=== PATIENT | female | born 1970 | race Caucasian/White ===

== ENCOUNTER 2020-07-04 10:07 | Emergency (ER) | payer BC ==
--- NOTE | 2020-07-04 10:38 | EDM.PDOC ---
ED HPI GENERAL MEDICAL PROBLEM - General Chief Complaint: Lower Extremity Injury/Pain Stated Complaint: POSSIBLY BROKE ANKLE Time Seen by Provider: 07/04/20 10:14 Source of Information: Reports: Patient History Limitations: Reports: No Limitations - History of Present Illness INITIAL COMMENTS - FREE TEXT/NARRATIVE: Reporting fall down 2 steps after catching her toe on the wrong. Happened just prior to arrival. She states that she twisted her ankle and now has lateral pain and tenderness. She crawled out to her vehicle and her son helped her get in and drove her here so she has not had an opportunity to bear weight. Denies any other injuries. She has a medical history that includes obesity ulcerative colitis hypertension and borderline diabetes. 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 left ankle Pain Score (Numeric/FACES): 4 - Related Data Allergies Allergy/AdvReac Type Severity Reaction Status Date / Time No Known Allergies Allergy Verified 07/04/20 10:29 Home Meds: Home Meds Losartan [Cozaar] 01/30/15 [History] Mesalamine [Lialda] 01/30/15 [History] Pantoprazole Sodium [Protonix] 20 mg PO DAILY 01/30/15 [History] Sertraline HCl 01/30/15 [History] azaTHIOprine [Imuran] 01/30/15 [History] Review of Systems - Review of Systems Review Of Systems: Comprehensive ROS is negative, except as noted in HPI. ED EXAM, GENERAL - Physical Exam Exam: See Below Exam Limited By: No Limitations General Appearance: Alert, No Apparent Distress Ears: Normal External Exam Nose: Normal Inspection Throat/Mouth: Normal Inspection Head: Atraumatic, Normocephalic Neck: Normal Inspection Respiratory/Chest: No Respiratory Distress, Lungs Clear, Normal Breath Sounds Cardiovascular: Regular Rate, Rhythm Extremities: Other (Ankle lateral swelling. Full range of motion of the ankle knee and toes without hesitation or limitation. Tenderness but no erythema ecchymosis, crepitus or deformity of the ankle.) Neurological: Alert, Oriented Course - Vital Signs Last Recorded V/S: Last Vital Signs Temp 36.4 C 07/04/20 10:30 Pulse 105 H 07/04/20 10:30 Resp 18 07/04/20 10:30 BP 187/94 H 07/04/20 10:30 Pulse Ox 98 07/04/20 10:30 - Orders/Labs/Meds Orders: Active Orders 24 hr Category Date Time Status Ketorolac [Toradol] Med 07/04/20 11:12 Once 60 mg IM ONETIME ONE DME for Discharge [COMM] Stat Oth 07/04/20 11:13 Ordered - Re-Assessments/Exams Free Text/Narrative Re-Assessment/Exam: 07/04/20 11:14 Distal fibula fracture. Patient requires splinting for immobilization and pain control to promote healing in anatomical alignment. Patient requires crutches for no weight bearing LLE for immobilization and pain control and to promote healing in anatomical alignment. Departure - Departure Time of Disposition: 11:23 Disposition: Home, Self-Care 01 Condition: Good Clinical Impression: Fibula fracture Qualifiers: Encounter type: initial encounter Fibula location: distal Fracture type: closed Laterality: left - Discharge Information Referrals: Erick Taylor MD [Primary Care Provider] - Seven Vang DO [Physician] - Forms: ED Department Discharge Additional Instructions: The following information is given to patients seen in the emergency department who are being discharged to home. This information is to outline your options for follow-up care. We provide all patients seen in our emergency department with a follow-up referral. The need for follow-up, as well as the timing and circumstances, are variable depending upon the specifics of your emergency department visit. If you don't have a primary care physician on staff, we will provide you with a referral. We always advise you to contact your personal physician following an emergency department visit to inform them of the circumstance of the visit and for follow-up with them and/or the need for any referrals to a consulting specialist. The emergency department will also refer you to a specialist when appropriate. This referral assures that you have the opportunity for follow-up care with a specialist. All of these measure are taken in an effort to provide you with optimal care, which includes your follow-up. Under all circumstances we always encourage you to contact your private physician who remains a resource for coordinating your care. When calling for follow-up care, please make the office aware that this follow-up is from your recent emergency room visit. If for any reason you are refused follow-up, please contact the [facility] Emergency Department at and asked to speak to the emergency department charge nurse. [facility] [place] [place] [facility] [address], [address] [place] [address] 1. Please call the orthopedic clinic for an appointment to be seen in the next 2 days for urgent follow up. Your name has been forwarded to the clinic for urgent follow up. 2. Elevate left foot. Cool pack 20 minutes every 3-4 hours as needed to prevent swelling and pain 3. Loosen Dean wrap if toes become cool, pale, tingling or numb 4. No weightbearing left leg. Use crutches. 5. Aleve 2 tabs a.m. and p.m. or ibuprofen 2-3 tabs 3 times daily with food as needed for pain. Sepsis Event Note (ED) - Evaluation Sepsis Screening Result: No Definite Risk - Focused Exam Vital Signs: Vital Signs Temp Pulse Resp BP Pulse Ox 07/04/20 10:30 36.4 C 105 H 18 187/94 H 98 - My Orders Last 24 Hours: My Active Orders 07/04/20 11:12 Ketorolac [Toradol] 60 mg IM ONETIME ONE 07/04/20 11:13 DME for Discharge [COMM] Stat - Assessment/Plan Last 24 Hours: My Active Orders 07/04/20 11:12 Ketorolac [Toradol] 60 mg IM ONETIME ONE 07/04/20 11:13 DME for Discharge [COMM] Stat
--- NOTE | 2020-07-04 11:09 | CR ---
Indication: Injury Technique: Three images of the left ankle were quite Comparison: None Findings: There is an oblique/spiral fracture the distal the fibula. There is widening of the syndesmosis medially. No lora dislocation. Impression: Fracture of the distal fibula. Widening of the syndesmosis medially. No lora dislocation Dictated by Michael Dai MD @ Jul 04 2020 11:05AM Signed by Dr. Michael Dai @ Jul 04 2020 11:08AM
[2020-07-04] MEDS ORDERED: Ketorolac 60 MG/2 ML SDV IM ONE (11:12)
[2020-07-04 19:27] VITALS: BP 157/83; PULSE 101
== END 2020-07-04 11:47 | disposition home or self-care (01) ==
LOC: MW.ED 10:07
DX: S82.832A Other fracture of upper and lower end of left fibula, initial encounter for closed fracture (principal); Z79.899 Other long term (current) drug therapy; W10.9XXA Fall (on) (from) unspecified stairs and steps, initial encounter
CPT/HCPCS: 29515; 73610; 96372; 99283; J1885; 99282

== ENCOUNTER 2020-07-12 09:17 | Day surgery (SDC) | payer BC ==
[~2020-07-12 09:17] MED LIST: Bupivacaine 25%/EPINEPHrine/PF 30 ML ONE; Lactated Ringers 1,000 ML IV SCH; Lidocaine 2% 5 ML SDV ONE; Midazolam 1 MG/ML 2 ML SDV ONE; Ondansetron 4 MG/2 ML SDV ONE; Propofol 200 MG/20 ML SDV ONE; ceFAZolin 2 GM in Premix Bag 1 BAG IV SCH; fentaNYL 250 MCG/5 ML SDV ONE
[2020-07-12] MEDS ORDERED: fentaNYL 100 MCG/2 ML SDV ONE (09:40)
[2020-07-12] MEDS ORDERED: Midazolam 1 MG/ML 2 ML SDV ONE (09:47)
[2020-07-12] MEDS ORDERED: fentaNYL 250 MCG/5 ML SDV ONE (09:47)
[2020-07-12] MEDS ORDERED: Propofol 200 MG/20 ML SDV ONE (09:47)
--- NOTE | 2020-07-12 09:54 | PCM.PREANE ---
Preanesthetic Assessment - Anesthesia/Transfusion/Family Hx Anesthesia History: Prior Anesthesia Without Reaction Family History of Anesthesia Reaction: No Transfusion History: No Prior Transfusion(s) Intubation History: Unknown - Review of Systems General: No Symptoms Pulmonary: No Symptoms Cardiovascular: No Symptoms Gastrointestinal: No Symptoms Neurological: No Symptoms Other: Reports: None - Physical Assessment Height: 5 ft 6 in Weight: 127.006 kg ASA Class: 3 Mental Status: Alert & Oriented x3 Airway Class: Mallampati = 2 Dentition: Reports: Normal Dentition, [place](s) (few, lower left and right (back)) Thyro-Mental Finger Breadths: 3 Mouth Opening Finger Breadths: 2 ROM/Head Extension: Limited/Partial Lungs: Clear to Auscultation, Normal Respiratory Effort Cardiovascular: Regular Rate, Regular Rhythm - Allergies Allergies/Adverse Reactions: Allergies Allergy/AdvReac Type Severity Reaction Status Date / Time No Known Allergies Allergy Verified 07/07/20 08:56 - Blood Blood Available: No - Anesthesia Plan Pre-Op Medication Ordered: None - Acknowledgements Anesthesia Type Planned: General Anesthesia Pt an Appropriate Candidate for the Planned Anesthesia: Yes Alternatives and Risks of Anesthesia Discussed w Pt/Guardian: Yes Pt/Guardian Understands and Agrees with Anesthesia Plan: Yes PreAnesthesia Questionnaire HEENT History: Reports: Other (See Below) Other HEENT History: wears glasses Cardiovascular History: Reports: High Cholesterol, Hypertension Respiratory History: Reports: Other (See Below) Other Respiratory History: states has not been diagnosed with sleep apnea but does snore Gastrointestinal History: Reports: GERD Other Gastrointestinal History: h/o ulcerative colitis Genitourinary History: Reports: None 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: Musculoskeletal History: Reports: Fracture (ankle at present time) Neurological History: Reports: Migraines Psychiatric History: Reports: Anxiety, Depression Endocrine/Metabolic History: Reports: Obesity/BMI 30+ (BMI 45.2), Other (See Below) Other Endocrine/Metabolic History: "borderline diabetic" Hematologic History: Reports: Anemia Immunologic History: Reports: None Oncologic (Cancer) History: Reports: None Dermatologic History: Reports: Other (See Below) Other Dermatologic History: hx shingles - Infectious Disease History Infectious Disease History: Reports: None - Past Surgical History Head Surgeries/Procedures: Reports: None HEENT Surgical History: Reports: Tonsillectomy Cardiovascular Surgical History: Reports: None Respiratory Surgical History: Reports: None GI Surgical History: Reports: Colonoscopy, Other (See Below) Other GI Surgeries/Procedures: hx hemorrhoidectomy Female Surgical History: Reports: None Endocrine Surgical History: Reports: None Neurological Surgical History: Reports: None Musculoskeletal Surgical History: Reports: None Oncologic Surgical History: Reports: None Dermatological Surgical History: Reports: None - SUBSTANCE USE Tobacco Use Status *Q: Former Tobacco User (quit 15 years ago) Tobacco Use Within Last Twelve Months: No - HOME MEDS Home Medications: Home Meds Losartan [Cozaar] 50 mg PO DAILY 01/30/15 [History] Mesalamine [Lialda] 1.2 mg PO DAILY 01/30/15 [History] Pantoprazole Sodium [Protonix] 20 mg PO DAILY 01/30/15 [History] azaTHIOprine [Imuran] 50 mg PO DAILY 01/30/15 [History] Ascorbic Acid [Vitamin C] 1 tab PO DAILY 07/07/20 [History] DULoxetine HCl [Duloxetine HCl] 90 mg PO DAILY 07/07/20 [History] Desogestrel-Ethinyl Estradiol [Isibloom 28 Day Tablet] 1 tab PO DAILY 07/07/20 [History] Ibuprofen [Advil] 1 tab PO ASDIRECTED PRN 07/07/20 [History] Levomefolate Calcium [l-Methylfolate] 15 mg PO DAILY 07/07/20 [History] Metoprolol Succinate 25 mg PO DAILY 07/07/20 [History] Multivitamin 1 tab PO DAILY 07/07/20 [History] Phosphatidyl Serine [Phosphatidylserine] 1 tab PO DAILY 07/07/20 [History] Zinc 1 tab PO DAILY 07/07/20 [History] atorvaSTATin Calcium [Atorvastatin Calcium] 20 mg PO DAILY 07/07/20 [History] busPIRone HCl [busPIRone] 30 mg PO BID 07/07/20 [History] lamoTRIgine [Lamictal] 100 mg PO DAILY 07/07/20 [History] - CURRENT (IN HOUSE) MEDS Current Meds: Current Medications Lactated Ringer's (Ringers, Lactated) 1,000 mls @ 100 mls/hr IV ASDIRECTED MECHELLE Cefazolin Sodium/Dextrose 2 gm (/ Premix) 50 mls @ 100 mls/hr IV ONCALL MECHELLE Discontinued Medications Fentanyl (Sublimaze) Confirm Administered Dose 250 mcg .ROUTE .STK-MED ONE Stop: 07/12/20 06:50 Fentanyl (Sublimaze) Confirm Administered Dose 100 mcg .ROUTE .STK-MED ONE Stop: 07/12/20 09:41 Bupivacaine HCl/Epinephrine Bitart (Sensorc Mpf 0.25%-Epi [id number]) Confirm Administered Dose 30 mls @ as directed .ROUTE .STK-MED ONE Stop: 07/12/20 07:43 Lidocaine (Xylocaine-Mpf 2%) Confirm Administered Dose 5 ml .ROUTE .STK-MED ONE Stop: 07/12/20 06:52 Midazolam HCl (Versed 1 Mg/Ml) Confirm Administered Dose 2 mg .ROUTE .STK-MED ONE Stop: 07/12/20 06:50 Ondansetron HCl (Zofran) Confirm Administered Dose 4 mg .ROUTE .STK-MED ONE Stop: 07/12/20 06:52 Propofol (Diprivan 20 Ml) Confirm Administered Dose 200 mg .ROUTE .STK-MED ONE Stop: 07/12/20 06:49
[2020-07-12] MEDS ORDERED: Sodium Chloride 0.9% 20 ML ONE (10:51)
[2020-07-12] MEDS ORDERED: ceFAZolin 1 GM Vial ONE (10:51)
[2020-07-12] MEDS ORDERED: Ketamine 500 mg/10 ML MDV ONE (11:31)
[2020-07-12] MEDS ORDERED: Ondansetron 4 MG/2 ML SDV ONE (11:46)
[2020-07-12] MEDS ORDERED: Ketorolac 30 MG/ML SDV ONE (12:03)
--- NOTE | 2020-07-12 12:18 | PCM.OPNOTE ---
- General Post-Op/Procedure Note Date of Surgery/Procedure: 07/12/20 Operative Procedure(s): orif left lateral malleolus fracture Pre Op Diagnosis: left lateral malleolus fracture closed Post-Op Diagnosis: Same Anesthesia Technique: General LMA Primary Surgeon: Seven Vang Try On Baster: Crystal Mitchell EBL in mLs: 25 Complications: None Condition: Good
[2020-07-12] MEDS ORDERED: HYDROmorphone 2 MG/ML Syringe IVPUSH PRN (12:32)
[2020-07-12] MEDS ORDERED: HYDROmorphone 2 MG/ML Syringe ONE (12:32)
[2020-07-12] MEDS ORDERED: Acetaminophen 1,000 MG in Premix Bag 1 BAG IV ONE (12:33)
--- NOTE | 2020-07-12 13:56 | PCM.POSTAN ---
POST ANESTHESIA ASSESSMENT - MENTAL STATUS Mental Status: Alert, Oriented - VITAL SIGNS Vital Signs: Last Vital Signs Temp 36.4 C 07/12/20 12:17 Pulse 115 H 07/12/20 13:02 Resp 12 07/12/20 13:02 BP 132/72 07/12/20 13:02 Pulse Ox 95 07/12/20 13:02 - RESPIRATORY Respiratory Status: Respiratory Rate WNL, Airway Patent, O2 Saturation Stable - CARDIOVASCULAR CV Status: Pulse Rate WNL, Blood Pressure Stable - GASTROINTESTINAL GI Status: No Symptoms - PAIN Pain Score: 4 - POST OP HYDRATION Hydration Status: Adequate & Stable - OBSERVATIONS Free Text/Narrative:: No anesthesia problems
--- NOTE | 2020-07-12 14:52 | PCM48HPAN ---
Post Anesthesia Note - EVALUATION WITHIN 48HRS OF ANESTHETIC Vital Signs in Normal Range: Yes Patient Participated in Evaluation: Yes Respiratory Function Stable: Yes Airway Patent: Yes Cardiovascular Function Stable: Yes Hydration Status Stable: Yes Pain Control Satisfactory: Yes Nausea and Vomiting Control Satisfactory: Yes Mental Status Recovered: Yes Vital Signs: Last Vital Signs Temp 97.5 F 07/12/20 12:17 Pulse 115 H 07/12/20 13:02 Resp 12 07/12/20 13:02 BP 132/72 07/12/20 13:02 Pulse Ox 95 07/12/20 13:02 - COMMENTS/OBSERVATIONS Free Text/Narrative:: no anesthesia problems
[2020-07-12 15:47] VITALS: BP 113/58; PULSE 109
--- NOTE | 2020-07-12 16:15 | OR ---
SURGEON: Seven Vang DATE OF PROCEDURE: 07/12/2020 PREOPERATIVE DIAGNOSIS: Left lateral malleolus fracture, closed. POSTOPERATIVE DIAGNOSIS: Left lateral malleolus fracture, closed. PROCEDURE: Open reduction and internal fixation, left lateral malleolus fracture. PRIMARY SURGEON: Seven Vang DO COMPENSATION CONSULTING MANAGER: HOMAR Tolbert ROLE OF COMPENSATION CONSULTING MANAGER: Nurse practitioner, HOMAR Tolbert, played an essential role in assisting in this case, helping to position the patient, retract structures as needed, as well as suturing and cutting sutures as indicated. Her presence improved patient's safety and decreased operative time. ANESTHESIA: General LMA. FLUID: Lactated Ringer's solution. ESTIMATED BLOOD LOSS: 25 mL. COMPLICATIONS: None. SPECIMEN: None. DISCHARGE DISPOSITION: Stable to PACU. HISTORY AND INDICATIONS FOR THE PROCEDURE: The patient was seen preoperatively by myself in the clinic. She had previously been seen in the ER and found to have the above-mentioned fracture on radiographic diagnosis. At that time, the radiographs did show a wide mortise and that is why we would proceed with open reduction and internal fixation. Risks and goals of the procedure were explained to the patient. Informed consent was obtained. DETAILS OF PROCEDURE: The patient was seen preoperatively by myself and the Anesthesia staff in the preoperative holding area where the operative site was marked. She was brought to the operative suite by Anesthesia staff where general anesthesia was administered. All extremities were found to be well padded. A well-padded tourniquet was placed on the left thigh. A bump was placed under the left hip. The left lower extremity was then prepped and draped in a sterile manner. Time- out was called identifying the correct patient, the correct procedure, the correct site, and that antibiotics were given within appropriate period of time. The left lower extremity was exsanguinated. Tourniquet was raised to 250 mmHg and let down after closure. A sterilely draped fluoroscopy unit was used to identify the fracture site, it was well lined up. An incision was made from the tip of the lateral malleolus, 10 cm proximal, down to the subcu. I used Metzenbaums to enter the fracture hematoma site and then split bluntly just to avoid any damage to the superficial peroneal nerve. I then used a holly elevator to elevate soft tissue off the bone. I then used a [place] elevator to remove any blood clot from within the fracture site. I put two lobster claws on, one using quite a bit of traction and then other one to reduce the fracture. I tried this several times and was unable to reduce it proximally and posteriorly, but because we had gotten the bulk of the fracture reduced, I decided that this would be acceptable for fracture reduction. With the lobster claws in place, I then placed a lag screw across the fracture site, which provided excellent fixation. We then placed a five-hole plate and then drilled the bevel hole first and then confirmed that on x-ray and then drilled my other four holes. We then took AP and lateral final radiographs and then copiously irrigated with Betadine infused irrigation and then used Bovie electrocautery to get some more bleeders and then used 0 Stratafix in continuous manner to close subcutaneous tissues and then used skin venancio followed by Betadine-soaked Adaptic, fluffs, and an Dean wrap and then we placed her back into her boot. The patient was allowed to awaken from general anesthesia and taken to the PACU in stable condition. [id number] / MODL /[id number]
--- NOTE | 2020-07-13 12:41 | CR ---
Indication: ORIF Findings: Two intraoperative fluoroscopic images demonstrate a plate and screw fixation of a distal fibular fracture. Dictated by Ángela Anne MD @ Jul 13 2020 12:39PM Signed by Dr. Ángela Anne @ Jul 13 2020 12:39PM
== END 2020-07-12 15:15 | disposition home or self-care (01) ==
LOC: MW.SDS 09:17
PROVIDERS: ATTEND Orthopaedic Surgery
DX: S82.62XA Displaced fracture of lateral malleolus of left fibula, initial encounter for closed fracture (principal); E78.00 Pure hypercholesterolemia, unspecified; I10 Essential (primary) hypertension; E66.9 Obesity, unspecified; Z68.42 Body mass index [BMI] 45.0-49.9, adult; Z98.890 Other specified postprocedural states; Z87.891 Personal history of nicotine dependence; Z79.899 Other long term (current) drug therapy
CPT/HCPCS: 27792; 76000; 82962; C1713; J0131; J0690; J1170; J1885; J2001; J2250; J2405; J2704; J3010; J7120; 01480